=== PATIENT | female | born 1955 | race Caucasian/White ===

== ENCOUNTER → 2016-11-15 | Day surgery (SDC) | payer BC, OTHER ==
[~2016-11-15] MED LIST: ACETAMINOPHEN PO; ALEVE220 M1 PO; ASPIRIN81 M1 PO; ASPIRIN81 M2 PO; FISH OIL 1,0001 EAC3 PO; LISINOPRIL10 MG PO; METOPROLOL TAR25 MG PO; METOPROLOL TART25 MG PO; MONTELUKAST SOD10 MG PO; MULTI-DAY VITAM1 TAB PO; SIMVASTATIN40 MG PO; ZYRTEC10 M1 PO; ZYRTEC10 M2 PO
--- NOTE | ~2016-11-15 | OR ---
Unit #: [id number] #: [id number] Patient: IRVING KWAN [id number] [address] [address] [id number] O MR#: [id number] NAME: IRVING KWAN. ROOM: Date of Procedure: 11/15/2016 Admission Date: 11/15/2016 Surgeon: Abraham De Los Santos M.D. : 1955 Attending Physician: Abraham De Los Santos M.D. Referring Physician: Abraham De Los Santos M.D. Primary Care Physician: Romeo Quinteros M.D. OPERATIVE REPORT PREOPERATIVE DIAGNOSES 1. Screening colonoscopy. 2. History of colonic polyps. POSTOPERATIVE DIAGNOSES 1. Screening colonoscopy. 2. History of colonic polyps. PROCEDURE PERFORMED Colonoscopy to cecum. ANESTHESIA Monitored anesthesia care. FINDINGS The patient was found to have a normal colon except for some small scarred mild internal hemorrhoids. SPECIMENS None. COMPLICATIONS None apparent. CONDITION The patient tolerated the procedure well. INDICATIONS FOR PROCEDURE The patient is a 61-year-old white female, whose last colonoscopy was in 2009. She has a history of colonic polyps. She presents at this time for colonoscopy. DESCRIPTION OF PROCEDURE After obtained informed consent, the patient was brought to the endoscopy suite and after adequate monitored anesthesia care, had a digital examination performed. There was good sphincter tone. No masses palpable. The colonoscope was placed through the anus and slowly advanced to the level of the cecum without difficulty with the lumen always in view. The cecum was normal as was the ileocecal valve. The ascending colon was normal as was the hepatic flexure, transverse colon, splenic flexure, descending colon, sigmoid colon, and rectum. No diverticula were seen. On retroflexing in the rectum to the anorectal junction, there were Unit #: [id number] #: [id number] Patient: IRVING KWAN some old small scarred internal hemorrhoids. No other abnormalities were seen. The scope was removed without difficulty. The patient tolerated the procedure well and went from the endoscopy suite to the recovery area in stable condition. RECOMMENDATIONS High-fiber diet, lots of liquids, tucks or wipes p.r.n. Follow up in our office as needed. Dictated by... Abraham De Los Santos M.D. JPG/anders TD: 11/16/2016 00:48 JOB #: [id number] CC: Tori Hussein M.D. [facility] OPERATIVE REPORT Page 1 of 1 X Abraham De Los Santos MD X PROCEDURE OPERATIVE NOTE
== END | disposition home or self-care (01) ==
LOC: COPS 09:56
DX: Z12.11 Encounter for screening for malignant neoplasm of colon (principal); K64.8 Other hemorrhoids; Z86.010 Personal history of colon polyps
CPT/HCPCS: J2250